=== PATIENT | female | born 1950 | race Caucasian/White ===

== ENCOUNTER 2021-10-24 09:15 | Outpatient (CLI) | payer MEDICARE ==
[2021-10-24 09:22] LABS: BASOPHILS % (AUTO) 0.7 %; EOSINOPHILS # (AUTO) 0.1 10^3/uL (0.0-0.7); EOSINOPHILS % (AUTO) 2.3 %; HCT - HEMATOCRIT 31.7 % (37.0-47.0); HGB - HEMOGLOBIN 10.9 g/dL (12.0-16.0); LYMPHOCYTES # (AUTO) 0.7 10^3/uL (1.5-3.5); MEAN CORPUSCULAR HEMOGLOBIN 31.9 pg (27.0-31.0); MEAN CORPUSCULAR HGB CONC 34.4 g/dL (32.0-36.0); MEAN CORPUSCULAR VOLUME 92.7 fL (81.0-99.0); MEAN PLATELET VOLUME 10.8 fL (7.9-10.8); MONOCYTES # (AUTO) 0.4 10^3/uL (0.0-1.0); MONOCYTES % (AUTO) 12.2 %; NEUTROPHILS # (AUTO) 1.9 10^3/uL (1.5-6.6); NEUTROPHILS % (AUTO) 60.8 %; PLT - PLATELET COUNT 151 10^3/uL (130-450); RED BLOOD COUNT 3.42 10^6/uL (4.20-5.40); RED CELL DISTRIBUTION WIDTH 11.6 % (12.0-15.0)
[2021-10-24 09:36] LABS: ALBUMIN 3.3 g/dL (3.2-5.5); ALBUMIN/GLOBULIN RATIO 1.1 (1.0-2.2); BILIRUBIN,TOTAL 0.8 mg/dL (0.2-1.0); CALCIUM 9.6 mg/dL (8.5-10.3); CREATININE 0.4 mg/dL (0.4-1.0); POTASSIUM 3.6 mmol/L (3.5-5.0); TOTAL PROTEIN 6.2 g/dL (6.7-8.2)
== END 2021-10-24 09:16 | disposition home or self-care (01) ==
LOC: LAB.R 09:15
PROVIDERS: ATTEND Internal Medicine
DX: C20 Malignant neoplasm of rectum (principal); R63.0 Anorexia; R40.0 Somnolence; R63.4 Abnormal weight loss; R53.83 Other fatigue; Z79.899 Other long term (current) drug therapy; R25.1 Tremor, unspecified
CPT/HCPCS: 80053; 84443; 85025

== ENCOUNTER 2022-01-15 11:26 | Emergency (ER) | payer MEDICARE ==
[2022-01-15] MEDS ORDERED: ONDANSETRON ODT 4 MG TABLET TL STA (11:48)
[2022-01-15 12:06] LABS: BASOPHILS % (AUTO) 0.4 %; EOSINOPHILS % (AUTO) 0.4 %; HGB - HEMOGLOBIN 9.4 g/dL (12.0-16.0); LYMPHOCYTES # (AUTO) 0.5 10^3/uL (1.5-3.5); LYMPHOCYTES % (AUTO) 11.4 %; MEAN CORPUSCULAR HEMOGLOBIN 28.3 pg (27.0-31.0); MEAN CORPUSCULAR HGB CONC 31.3 g/dL (32.0-36.0); MEAN CORPUSCULAR VOLUME 90.4 fL (81.0-99.0); MONOCYTES # (AUTO) 0.5 10^3/uL (0.0-1.0); MONOCYTES % (AUTO) 10.3 %; NEUTROPHILS # (AUTO) 3.7 10^3/uL (1.5-6.6); NEUTROPHILS % (AUTO) 77.3 %; PLT - PLATELET COUNT 144 10^3/uL (130-450); RED BLOOD COUNT 3.32 10^6/uL (4.20-5.40); RED CELL DISTRIBUTION WIDTH 14.5 % (12.0-15.0); WHITE BLOOD COUNT 4.8 x10^3/uL (4.8-10.8)
[2022-01-15 12:18] LABS: ALBUMIN 3.4 g/dL (3.2-5.5); ALBUMIN/GLOBULIN RATIO 1.1 (1.0-2.2); BILIRUBIN,TOTAL 2.5 mg/dL (0.2-1.0); CALCIUM 10.1 mg/dL (8.5-10.3); CREATININE 0.6 mg/dL (0.4-1.0); POTASSIUM 3.8 mmol/L (3.5-5.0); TOTAL PROTEIN 6.4 g/dL (6.7-8.2)
[2022-01-15 12:27] LABS: GLUCOSE, URINE (UA) NEGATIVE (NEGATIVE); KETONES,URINE (UA) 15 mg/dL (NEGATIVE); LEUKOCYTE ESTERASE, URINE NEGATIVE (NEGATIVE); NITRITE,URINE NEGATIVE (NEGATIVE); OCCULT BLOOD,URINE NEGATIVE (NEGATIVE); PH,URINE 5.5 PH (5.0-7.5); PROTEIN,URINE NEGATIVE (NEGATIVE); UROBILINOGEN,URINE 0.2 (NORMAL) E.U./dL (NORMAL)
[2022-01-15 12:33] LABS: BILIRUBIN,URINE NEGATIVE (NEGATIVE); CLARITY,URINE CLEAR (CLEAR); ICTOTEST,URINE NEGATIVE
[2022-01-15] MEDS ORDERED: SODIUM CHLORIDE 0.9% 1,000 ML IV STA (15:38)
[2022-01-15] MEDS ORDERED: ONDANSETRON 4 MG/2 ML VIAL IVP STA (15:38)
--- NOTE | 2022-01-15 15:41 | ED Physician Documentation ---
History of Present Illness - Stated complaint Stated Complaint: VOMITTING - Chief complaint Chief Complaint: Abd Pain - Additonal information Additional information: 71-year-old female presents emergency department for evaluation of 6 days nausea vomiting and diarrhea. She has a history of rectal Carcinoma and does have a diverting colostomy on the left side. She states that typically she has formed stools but over the last week she is having a lot of yellow and green diarrhea through the ostomy. She is also reporting excessive nausea and some vomiting. No focal abdominal pain. No fevers. No dysuria. She has not received any a ntibiotics recently. She was followed by Dr. Hollis with our hematology oncology MAC service. Recent CT scan of the abdomen in late October did not show any recurrence or distant metastasis however there was some unusual findings on the liver segment of the CT scan. Her CEA had remained negative and the plan was to follow-up with repeat CT imaging in 3 months. Review of Systems Constitutional: denies: Fever, Chills Cardiac: reports: Reviewed and negative Respiratory: reports: Reviewed and negative GI: reports: Nausea, Vomiting, Diarrhea. denies: Abdominal Pain, Hematemesis, Bloody / black stool : reports: Reviewed and negative Skin: reports: Reviewed and negative Musculoskeletal: reports: Reviewed and negative PD PAST MEDICAL HISTORY - Past Medical History Neuro: Peripheral neuropathy Endocrine/Autoimmune: None GI: None, Other - Past Surgical History General: Bowel surgery, Colonoscopy, EGD - Present Medications Home Medications: Ambulatory Orders Medication Instructions Recorded Confirmed ALPRAZolam [Alprazolam] 1 - 2 tab PO ONCE PRN 06/07/21 11/30/21 Gabapentin [Neurontin] 100 mg PO BID 06/07/21 11/30/21 Lisinopril [Zestril] 10 mg PO DAILY 06/07/21 11/30/21 Aspirin [[place] Aspirin] 81 mg PO DAILY 09/13/21 11/30/21 Calcium Carbonate 650 mg PO DAILY 09/13/21 11/30/21 Propranolol [Inderal] 10 mg PO BID 12/10/21 12/10/21 Prochlorperazine [Compazine] 5 mg PO Q6H PRN #10 tablet 01/15/22 - Allergies Allergies/Adverse Reactions: Allergies Allergy/AdvReac Type Severity Reaction Status Date / Time Penicillins Allergy Unknown Verified 06/07/21 11:16 codeine AdvReac Unknown Verified 06/07/21 11:16 - Social History Smoking Status: Former smoker PD ED PE NORMAL - General General: Alert and oriented X 3, No acute distress, Well developed/nourished - HEENT HEENT: Atraumatic, Moist mucous membranes - Neck Neck: Supple, no meningeal sign, No adenopathy - Cardiac Cardiac: RRR, No murmur - Respiratory Respiratory: No respiratory distress, Clear bilaterally - Abdomen Abdomen: Normal bowel sounds, Soft, Non tender, Other (Left-sided colostomy draining yellow-green watery stools. 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 Eye Opening: Spontaneous Motor: Obeys Commands Verbal: Oriented GCS Score: 15 Results - Vitals Vitals: Vital Signs - 24 hr 01/15/22 01/15/22 01/15/22 11:46 16:01 16:49 Temperature 37.0 C Heart Rate 68 68 68 Respiratory 19 19 22 Rate Blood Pressure 132/60 H 119/53 L 117/52 L O2 Saturation 99 99 100 01/15/22 01/15/22 18:00 19:27 Temperature Heart Rate 82 75 Respiratory 22 18 Rate Blood Pressure 136/81 H 129/54 L O2 Saturation 99 100 Oxygen O2 Source Room air - Labs Labs: Laboratory Tests 01/15/22 01/15/22 01/15/22 11:59 11:59 12:15 WBC 4.8 RBC 3.32 L Hgb 9.4 L Hct 30.0 L MCV 90.4 MCH 28.3 MCHC 31.3 L RDW 14.5 Plt Count 144 MPV 11.0 H Neut # (Auto) 3.7 Lymph # (Auto) 0.5 L [place] # (Auto) 0.5 Eos # (Auto) 0.0 Baso # (Auto) 0.0 Absolute Nucleated RBC 0.00 Nucleated RBC % 0.0 Sodium 137 Potassium 3.8 Chloride 101 Carbon Dioxide 25 Anion Gap 11.0 BUN 26 H Creatinine 0.6 Estimated GFR (MDRD) 99 Glucose 105 H Calcium 10.1 Total Bilirubin 2.5 H AST 37 ALT 33 Alkaline Phosphatase 89 Total Protein 6.4 L Albumin 3.4 Globulin 3.0 Albumin/Globulin Ratio 1.1 Lipase 30 Urine Color DARK YELLOW Urine Clarity CLEAR Urine pH 5.5 Ur Specific Wise >=1.030 H Urine Protein NEGATIVE Urine Glucose (UA) NEGATIVE Urine Ketones 15 H Urine Occult Blood NEGATIVE Urine Nitrite NEGATIVE Urine Bilirubin NEGATIVE Urine Urobilinogen 0.2 (NORMAL) Ur Leukocyte Esterase NEGATIVE Ur Microscopic Review NOT INDICATED Urine Culture Comments NOT INDICATED Stl C. diff Tox B Gene 01/15/22 12:15 WBC RBC Hgb Hct MCV MCH MCHC RDW Plt Count MPV Neut # (Auto) Lymph # (Auto) [place] # (Auto) Eos # (Auto) Baso # (Auto) Absolute Nucleated RBC Nucleated RBC % Sodium Potassium Chloride Carbon Dioxide Anion Gap BUN Creatinine Estimated GFR (MDRD) Glucose Calcium Total Bilirubin AST ALT Alkaline Phosphatase Total Protein Albumin Globulin Albumin/Globulin Ratio Lipase Urine Color Urine Clarity Urine pH Ur Specific Wise Urine Protein Urine Glucose (UA) Urine Ketones Urine Occult Blood Urine Nitrite Urine Bilirubin Urine Urobilinogen Ur Leukocyte Esterase Ur Microscopic Review Urine Culture Comments Stl C. diff Tox B Gene NEGATIVE - Rads (name of study) CT abd Radiology: Final report received (Small to moderate volume of low-density fluid in the pelvis which is new. No pneumoperitoneum. Heterogeneous hypodensity of the liver. This could be seen in the setting of hepatic steatosis. Left lower quadrant colostomy. No bowel obstruction. Trace right pleural effusion) abd US Radiology: Final report received (Liver with coarsened heterogeneous appearance. Nonspecific but could be seen in steatosis cirrhosis or hepatitis. Gallbladder wall is minimally thickened. Nonspecific and low suspicion for acute cholecystitis. No gallstones. No biliary ductal dilation.) PD MEDICAL DECISION MAKING - ED course Complexity details: reviewed results, re-evaluated patient, d/w patient ED course: 71-year-old female presents to the emergency department for evaluation of 5 to 6 days nausea, vomiting and diarrhea. She does have a history of rectal carcinoma and has a left-sided colostomy. Typically she reports a colostomy put out formed stools but over the last few days its been watery. She is also had some diarrhea. She has been followed by the hematology oncology clinic. Patient has no fevers. No focal abdominal pain or tenderness. She presents very well-appearing with normal vitals, no tachycardia hypotension or hypoxia. Her initial labs showed no worrisome leukocytosis. She has a mild anemia. Her electrolytes were all essentially nonconcerning with the exception of an isolated finding of a bilirubin of 2.5. There were no other LFT abnormalities. In review of the chart it does appear that they have been suspicious of about a possible lesion within the liver. I elected to perform a CT of the abdomen and pelvis. There was nothing to suggest biliary obstruction or acute cholecystitis. We also elected to perform a limited abdominal ultrasound that showed a contracted gallbladder with mild gallbladder wall thickening but no stones and very low suspicion for acute cholecystitis. On exam her abdominal tenderness is minimal and certainly nonperitoneal and nonfocal to the right upper quadrant. Here in the emergency department she was given a liter of fluid as well as Zofran followed by Compazine. With this medication she felt the nausea was improved and she was able to tolerate sips of clear liquids. A stool study and C. difficile PCR are pending but at this time there does not appear to be any acute surgical crisis and patient and her daughter would both like to be discharged home. A prescription for Compazine will be sent to the pharmacy as this was the most effective medication in managing her nausea. She is encouraged close follow-up with her primary care provider as well as her oncologist. Emergent return precautions otherwise discussed Departure - Departure Disposition: 01 Home, Self Care Clinical Impression: Nausea vomiting and diarrhea, Total bilirubin, elevated Condition: Stable Record reviewed to determine appropriate education?: Yes Prescriptions: Prochlorperazine [Compazine] 5 mg PO Q6H PRN #10 tablet PRN Reason: Nausea / Vomiting Comments: April you are seen today in the emergency department because for the last several days or week you have been having some vomiting and diarrhea. Here in the emergency department your CBC and electrolytes were all essentially normal with the exception of a mildly elevated bilirubin at 2.5. The cause of this is not clear. We did do a CT of your abdomen that does not suggest any obstruction within the gallbladder or liver. We also completed an ultrasound to look at the gallbladder and liver and do not show any thing to suggest gallbladder disease or obstruction. Here in the emergency department we did give you some IV fluids followed by Zofran and then Compazine. With this medication your nausea is much better and you are now tolerating sips of clear liquids. The cause of your vomiting and diarrhea is not clear though I do not think it is related to the elevated bilirubin level. I would like you to follow this up with your primary care providers over the next 1 to 2 weeks to have your labs rechecked. In the short-term I sent a prescription for some Compazine to the pharmacy. I would like you to Have sips of clear liquids over the next 24 to 36 hours. If your nausea is improved and you are keeping liquids down then you can advance your diet slowly with bananas, rice, applesauce and then toast. If you cannot tolerate them lactobacillus or plain yogurt can help recolonize your intestines with healthy bacteria and help reduce your diarrhea. If despite the Compazine at home you find that you are not keeping liquids down, you develop fevers, have uncontrolled abdominal pain or worsening diarrhea then please return immediately to the ER. We will follow-up with you the results of the stool cultures only if there are positive results.
[2022-01-15] MEDS ORDERED: iohexoL-300 100 ML VIAL ONE (16:09)
--- NOTE | 2022-01-15 17:52 | CT Report ---
PROCEDURE: ABDOMEN/PELVIS W INDICATIONS: n/v/d; Elevated bili CONTRAST: 100ml Omnipaque 300 TECHNIQUE: After the administration of intravenous contrast, 5 mm thick sections acquired from the diaphragms to the symphysis. 5 mm thick coronal and sagittal reformats were acquired. For radiation dose reducti on, the following was used: automated exposure control, adjustment of mA and/or kV according to santosh ent size. COMPARISON: CT abdomen pelvis 11/26/2021. FINDINGS: Image quality: Excellent. ABDOMEN: Lung bases: Trace right pleural effusion. Heart size is normal. Solid organs: Heterogeneous hypodense appearance of the liver. No discrete lesion is identified. Gal lbladder is decompressed Biliary system is non dilated. Pancreas enhances normally. No splenomegal y. No adrenal nodules. Kidneys demonstrate normal size and enhancement, without hydronephrosis. Peritoneum and bowel: Left lower quadrant colostomy. No small bowel obstruction. Low-density small-to -moderate volume of ascites in the pelvis. No pneumoperitoneum. Nodes and vessels: No retroperitoneal or mesenteric adenopathy by size criteria. Shotty appearing r etroperitoneal lymph nodes are similar. Aortic ectasia. Extensive calcified atherosclerotic plaque. Miscellaneous: Small fat-containing parastomal hernia. PELVIS: Genitourinary: Bladder is partially distended. Anteverted uterus. Miscellaneous: No inguinal hernias or adenopathy. Bones: Sclerosis at the SI joints appears similar. Bones appear osteopenic. No vertebral body jaqui harriet fractures. IMPRESSION: 1. Small to moderate volume of low-density fluid in the pelvis which is new. No pneumoperitoneum. 2. Heterogeneous hypodensity of the liver. This could be seen in the setting of hepatic steatosis. H owever, other forms of hepatocellular disease could have a similar appearance such as hepatitis. 3. Left lower quadrant colostomy. Similar small fat-containing parastomal hernia. No small bowel obst ruction. 4. Trace right pleural effusion. Reviewed by: Mauro Hardin MD on 01/15/2022 5:51 PM PDT Approved by: Mauro Hardin MD on 01/15/2022 5:51 PM PDT Station ID: [id number]
--- NOTE | 2022-01-15 18:51 | Ultrasound Report ---
PROCEDURE: Abdomen Limited INDICATIONS: elevate bilirubin TECHNIQUE: Real-time scanning was performed of the abdominal and retroperitoneal organs, with image documentatio n. COMPARISON: CT abdomen pelvis earlier today. FINDINGS: Liver: Measures 15.5 cm in length. Coarsened and heterogeneous echotexture. Portal vein demonstrates hepatopedal flow. Gallbladder: Gallbladder is nondistended. No stones or sludge. Bladder wall measures 3.7 mm. No peric holecystic fluid. Negative sonographic Schmid sign. Biliary ducts: Extrahepatic bile duct caliber measures 3 mm. Normal is 6-7 mm or less in diameter, or 10 mm or less post-cholecystectomy. Pancreas: Visualized portions of the pancreas are sonographically normal. Tail was not well seen. Right kidney: Right kidney measures 10.8 cm. Cortex 1.5 cm. No hydronephrosis. IMPRESSION: 1. Liver has a coarsened and heterogeneous appearance. This is nonspecific but could be seen in hepat ic steatosis, cirrhosis, or hepatitis. 2. Gallbladder wall is minimally thickened. This is nonspecific and suspicion for acute cholecystitis is low. This could be reactive due to inflammatory process in the liver. 3. No gallstones. 4. No biliary ductal dilatation is seen. Reviewed by: Mauro Hardin MD on 01/15/2022 6:50 PM PDT Approved by: Mauro Hardin MD on 01/15/2022 6:50 PM PDT Station ID: [id number]
[2022-01-15] MEDS ORDERED: PROCHLORPERAZINE 10 MG/2 ML VIAL IVP STA (18:57)
[2022-01-15 20:18] VITALS: BP 116/67
[2022-01-16] MEDS ORDERED: iohexoL-300 100 ML VIAL IVP ONE (00:11)
== END 2022-01-15 20:19 | disposition home or self-care (01) ==
LOC: ED 11:26
DX: R11.2 Nausea with vomiting, unspecified (principal); R19.7 Diarrhea, unspecified; E80.7 Disorder of bilirubin metabolism, unspecified; Z93.3 Colostomy status; Z87.891 Personal history of nicotine dependence; Z85.048 Personal history of other malignant neoplasm of rectum, rectosigmoid junction, and anus
CPT/HCPCS: 36415; 74177; 76705; 80053; 81003; 83690; 85025; 87493; 96361; 96374; 96375; 99283; 99284; Q0162; Q9967; 81001; 87086

== ENCOUNTER 2022-01-22 13:39 | Outpatient (CLI) | payer MEDICARE ==
--- NOTE | 2022-01-23 09:31 | Mammography Report ---
BILATERAL DIGITAL SCREENING MAMMOGRAM 3D/2D: 01/22/2022 CLINICAL: Routine screening. New baseline. No prior exams were available for comparison. Both breasts are heterogeneously dense, which may obscure small masses (category c / 51-75% glandular tissue). No significant masses, calcifications, or other findings are seen in either breast. IMPRESSION: NEGATIVE There is no mammographic evidence of malignancy. A 1 year screening mammogram is recommended. Based on the Tyrer Cuzick model (a risk assessment model) the patients lifetime risk is 5.1% and her 10 year risk is 3.6%. According to the ACR, ACS, and NCCN guidelines, an annual breast MRI exam veena g with mammogram is recommended if the patients lifetime risk is 20% or greater. This exam was interpreted at Station ID: [id number]. NOTE: For mammograms, a report in lay terms will be sent to the patient. Approximately 15% of breast malignancies will not be visualized mammographically. In the management of a palpable breast mass, a negative mammogram must not discourage biopsy of a clinically suspicious lesion. Electronically Signed By: Mauro Hardin M.D. [facility] [place]01/22/2022 17:55:44 ACR BI-RADS Category 1: Negative 3341F PARENCHYMAL PATTERN: (D) - The breast(s) demonstrate(s) heterogeneously dense fibroglandular surendra valdez. BI-RADS CATEGORY: (1) - 1 RECOMMENDATION: (ANNUAL) - Recommend routine annual screening mammography. 20230123 1 year screening LATERALITY: (B)
== END 2022-01-22 13:40 | disposition home or self-care (01) ==
LOC: DI 13:39
PROVIDERS: ATTEND Internal Medicine
DX: Z12.31 Encounter for screening mammogram for malignant neoplasm of breast (principal)

== ENCOUNTER 2022-04-03 17:48 | Emergency (ER) | payer MEDICARE ==
[2022-04-03] MEDS ORDERED: IPRATROPIUM/ALBUTEROL 3 ML NEB INH STA (18:16)
--- NOTE | 2022-04-03 18:19 | ED Physician Documentation ---
History of Present Illness - Stated complaint Stated Complaint: CHEST PX/DIARREAH/COUGH - Chief complaint Chief Complaint: General - History obtained from History obtained from: Patient - Additonal information Additional information: 71-year-old woman presents with her daughter for evaluation of shortness of breath and cough. She has had minimally productive cough for the last 2 weeks associated with shortness of breath especially on exertion. There is no associated chest pain. She has chronic pedal edema. Comorbidities include COPD, CHF, rectal cancer in remission. Reviewed old records, had echocardiogram March 14 of last month showing normal LVEF with severe diastolic dysfunction, severe left atrial enlargement, severe right ventricular enlargement with severe pulmonary hypertension, moderate to severe tricuspid regurgitation. She does have a cardiology appointment April 09 to follow-up on this. Review of Systems Constitutional: denies: Fever, Chills Ears: denies: Loss of hearing, Ear pain Cardiac: denies: Chest pain / pressure, Palpitations Respiratory: reports: Dyspnea, Cough PD PAST MEDICAL HISTORY - Past Medical History Neuro: Peripheral neuropathy Endocrine/Autoimmune: None GI: None, Other - Past Surgical History General: Bowel surgery, Colonoscopy, EGD - Present Medications Home Medications: Ambulatory Orders Medication Instructions Recorded Confirmed ALPRAZolam [Alprazolam] 1 - 2 tab PO ONCE PRN 06/07/21 03/22/22 Gabapentin [Neurontin] 100 mg PO BID 06/07/21 03/22/22 Lisinopril [Zestril] 10 mg PO DAILY 06/07/21 03/22/22 Aspirin [[place] Aspirin] 81 mg PO DAILY 09/13/21 03/22/22 Calcium Carbonate 650 mg PO DAILY 09/13/21 03/22/22 Propranolol [Inderal] 10 mg PO BID 12/10/21 03/22/22 Prochlorperazine [Compazine] 5 mg PO Q6H PRN #10 tablet 01/15/22 03/22/22 Diphenoxylate/Atropine [Lomotil] 1 each PO QID #20 tablet 04/03/22 Doxycycline [Vibramycin] 100 mg PO BID #14 tablet 04/03/22 Furosemide [Lasix] 2 tab PO DAILY #20 tablet 04/03/22 Potassium Chloride 10 meq PO DAILY #10 cap 04/03/22 predniSONE [Deltasone] 20 mg PO [id number] #21 tab 04/03/22 - Allergies Allergies/Adverse Reactions: Allergies Allergy/AdvReac Type Severity Reaction Status Date / Time Penicillins Allergy Unknown Verified 04/03/22 18:04 codeine AdvReac Unknown Verified 04/03/22 18:04 - Social History Smoking Status: Former smoker PD ED PE NORMAL - Vitals Vital signs reviewed: Yes - General General: Alert and oriented X 3, Other (Appears pale and chronically ill) - HEENT HEENT: PERRL, EOMI - Neck Neck: Supple, no meningeal sign, No bony TTP - Cardiac Cardiac: RRR, No murmur - Respiratory Respiratory: Other (Rhonchi both bases, nonlabored, speaking in full sentences.) - Abdomen Abdomen: Non tender, Other (Ostomy in place) - Back Back: No CVA TTP, No spinal TTP - Derm Derm: Normal color, Warm and dry - Extremities Extremities: Other (1-2+ pitting pedal edema with chronic venous stasis changes, looks chronic.) - Neuro Neuro: Alert and oriented X 3, Normal speech Results - Vitals Vitals: Vital Signs - 24 hr 04/03/22 04/03/22 04/03/22 17:54 18:27 18:50 Temperature 36.8 C Heart Rate 82 79 78 Respiratory 28 H 23 20 Rate Blood Pressure 135/69 H 129/77 O2 Saturation 98 99 04/03/22 04/03/22 19:32 19:56 Temperature Heart Rate 78 80 Respiratory 28 H 25 H Rate Blood Pressure 131/57 H 127/62 O2 Saturation 98 99 Oxygen O2 Source Room air - EKG (time done) 1830 Rate: Rate (enter#) (79) Rhythm: NSR [place]: Normal Intervals: RBBB (incomplete) QRS: Low voltage Ischemia: No: ST elevation c/w ischemia, ST depression Computer interpretation: Disagree with computer (Computer reads this as atrial flutter but in several leads there are clear normal P waves without flutter. There is some artifact.) - Labs Labs: Laboratory Tests 04/03/22 04/03/22 04/03/22 18:45 18:45 18:45 WBC 7.8 RBC 3.16 L Hgb 8.6 L Hct 27.2 L MCV 86.1 MCH 27.2 MCHC 31.6 L RDW 14.8 Plt Count 198 MPV 9.7 Neut # (Auto) 6.2 Lymph # (Auto) 0.6 L [place] # (Auto) 0.9 Eos # (Auto) 0.0 Baso # (Auto) 0.0 Absolute Nucleated RBC 0.00 Nucleated RBC % 0.0 Sodium 133 L Potassium 3.6 Chloride 94 L Carbon Dioxide 29 Anion Gap 10.0 BUN 15 Creatinine 0.4 Estimated GFR (MDRD) 157 Glucose 97 Calcium 8.7 Total Bilirubin 7.1 H AST 20 ALT 13 Alkaline Phosphatase 84 B-Natriuretic Peptide 1941 H Total Protein 6.1 L Albumin 2.6 L Globulin 3.5 Albumin/Globulin Ratio 0.7 L Nasal Adenovirus (PCR) Nasal B. parapertussis DNA (PCR) Nasal Coronavir 229E PCR Nasal Coronavir HKU1 PCR Nasal Coronavir NL63 PCR Nasal Coronavir OC43 PCR Nasal Enterovir/Rhinovir PCR Nasal Influenza B PCR Nasal Influenza A PCR Nasal Parainfluen 1 PCR Nasal Parainfluen 2 PCR Nasal Parainfluen 3 PCR Nasal Parainfluen 4 PCR Nasal RSV (PCR) Nasal B.pertussis DNA PCR Nasal C.pneumoniae (PCR) Barrett Human Metapneumo PCR Nasal M.pneumoniae (PCR) Nasal SARS-CoV-2 (PCR) 04/03/22 18:53 WBC RBC Hgb Hct MCV MCH MCHC RDW Plt Count MPV Neut # (Auto) Lymph # (Auto) [place] # (Auto) Eos # (Auto) Baso # (Auto) Absolute Nucleated RBC Nucleated RBC % Sodium Potassium Chloride Carbon Dioxide Anion Gap BUN Creatinine Estimated GFR (MDRD) Glucose Calcium Total Bilirubin AST ALT Alkaline Phosphatase B-Natriuretic Peptide Total Protein Albumin Globulin Albumin/Globulin Ratio Nasal Adenovirus (PCR) NOT DETECTED Nasal B. parapertussis DNA (PCR) NOT DETECTED Nasal Coronavir 229E PCR NOT DETECTED Nasal Coronavir HKU1 PCR NOT DETECTED Nasal Coronavir NL63 PCR NOT DETECTED Nasal Coronavir OC43 PCR NOT DETECTED Nasal Enterovir/Rhinovir PCR NOT DETECTED Nasal Influenza B PCR NOT DETECTED Nasal Influenza A PCR NOT DETECTED Nasal Parainfluen 1 PCR NOT DETECTED Nasal Parainfluen 2 PCR NOT DETECTED Nasal Parainfluen 3 PCR NOT DETECTED Nasal Parainfluen 4 PCR NOT DETECTED Nasal RSV (PCR) NOT DETECTED Nasal B.pertussis DNA PCR NOT DETECTED Nasal C.pneumoniae (PCR) NOT DETECTED Barrett Human Metapneumo PCR NOT DETECTED Nasal M.pneumoniae (PCR) NOT DETECTED Nasal SARS-CoV-2 (PCR) NOT DETECTED - Rads (name of study) Single view chest x-ray demonstrates cardiomegaly and pulmonary vascular congestion Radiology: Final report received, EMP read indepedently PD Medical Decision Making - ED course Complexity details: reviewed results (CBC reviewed showing slow worsening of chronic anemia, not a huge drop from a few months ago. CMP reviewed and notable for elevated bilirubin at 7.1. That has been going up and may be due to CHF. BNP elevated more so than prior visit. ) ED course: 71-year-old female presents with shortness of breath. I think it is a combination of COPD and CHF. No chest pain or ischemic findings on EKG. She does have rising bilirubin and evidence of CHF on chest x-ray. I believe the rising bilirubin is related to hepatic congestion from her CHF. This is corroborated by review of CT scans done in January showing likely cardiogenic cause of anasarca and hepatic congestion. She did feel somewhat better after a DuoNeb here. We will treat for combination of COPD and CHF by adding steroids and antibiotics, doubling her Lasix as she is currently on 20 mg a day, she needed something for diarrhea and was prescribed Lomotil. She is not on potassium supplementation which we will start. Given her serious valvular disease it is reassuring that she is seeing a fire battalion chief next week. Departure - Departure Disposition: 01 Home, Self Care Clinical Impression: Total bilirubin, elevated, CHF (congestive heart failure), COPD exacerbation Condition: Good Record reviewed to determine appropriate education?: Yes Instructions: COPD Dc, ED CHF General Prescriptions: predniSONE [Deltasone] 20 mg PO [id number] #21 tab Furosemide [Lasix] 2 tab PO DAILY #20 tablet Diphenoxylate/Atropine [Lomotil] 1 each PO QID #20 tablet Potassium Chloride 10 meq PO DAILY #10 cap Doxycycline [Vibramycin] 100 mg PO BID #14 tablet Comments: You were seen tonight for what I think is probably a combination of COPD exacerbation and congestive heart failure. I would like you to double your Lasix to 40 mg a day. To that I am adding steroids, antibiotics, and a potassium supplement to be taken while you are on the water pill. It is good that you are following up with a fire battalion chief next week as certainly some of the problem I think is related to your leaky tricuspid valve. Return for new or worsening symptoms. We also note that you are anemic, and your bilirubin is going up. These findings may be related to your CHF but also deserve rapid follow-up with your primary care physician for further work-up. I sent your prescriptions electronically to the [facility] pharmacy here in [place].
[2022-04-03 18:54] LABS: BASOPHILS % (AUTO) 0.5 %; EOSINOPHILS % (AUTO) 0.1 %; HCT - HEMATOCRIT 27.2 % (37.0-47.0); HGB - HEMOGLOBIN 8.6 g/dL (12.0-16.0); LYMPHOCYTES # (AUTO) 0.6 10^3/uL (1.5-3.5); LYMPHOCYTES % (AUTO) 7.3 %; MEAN CORPUSCULAR HEMOGLOBIN 27.2 pg (27.0-31.0); MEAN CORPUSCULAR HGB CONC 31.6 g/dL (32.0-36.0); MEAN CORPUSCULAR VOLUME 86.1 fL (81.0-99.0); MEAN PLATELET VOLUME 9.7 fL (7.9-10.8); MONOCYTES # (AUTO) 0.9 10^3/uL (0.0-1.0); MONOCYTES % (AUTO) 11.3 %; NEUTROPHILS # (AUTO) 6.2 10^3/uL (1.5-6.6); NEUTROPHILS % (AUTO) 80.3 %; PLT - PLATELET COUNT 198 10^3/uL (130-450); RED BLOOD COUNT 3.16 10^6/uL (4.20-5.40); RED CELL DISTRIBUTION WIDTH 14.8 % (12.0-15.0); WHITE BLOOD COUNT 7.8 x10^3/uL (4.8-10.8)
[2022-04-03 19:05] LABS: ALBUMIN 2.6 g/dL (3.2-5.5); ALBUMIN/GLOBULIN RATIO 0.7 (1.0-2.2); BILIRUBIN,TOTAL 7.1 mg/dL (0.2-1.0); CALCIUM 8.7 mg/dL (8.5-10.3); CREATININE 0.4 mg/dL (0.4-1.0); POTASSIUM 3.6 mmol/L (3.5-5.0); TOTAL PROTEIN 6.1 g/dL (6.7-8.2)
--- NOTE | 2022-04-03 19:08 | XRAY Report ---
PROCEDURE: Chest 1 View X-Ray INDICATIONS: cough TECHNIQUE: One view of the chest was acquired. COMPARISON: None. FINDINGS: Surgical changes and devices: None. Lungs and pleura: Diffuse bilateral airspace opacities. There is a right chest wall port. Mediastinum: Mediastinal contours appear normal. Heart size is normal. Bones and chest wall: No suspicious bony lesions. Overlying soft tissues appear unremarkable. IMPRESSION: 1. Cardiomegaly. 2. Pulmonary vascular congestion consistent with CHF or a diffuse infectious process. Reviewed by: Rikki Chance on 04/03/2022 7:07 PM [facility] Approved by: Rikki Chance on 04/03/2022 7:07 PM [facility] Station ID: [id number]
[2022-04-03] MEDS ORDERED: FUROSEMIDE 40 MG/4 ML VIAL IVP STA (19:39)
[2022-04-03 19:55] LABS: B. PARAPERTUSSIS- RESP PCR PAN NOT DETECTED; B. PERTUSSIS- RESP PCR PANEL NOT DETECTED; C. PNEUMONIAE- RESP PCR PANEL NOT DETECTED; CORONAVIRUS 229E-RESP PCR NOT DETECTED; CORONAVIRUS HKU1-RESP PCR NOT DETECTED; CORONAVIRUS NL63-RESP PCR NOT DETECTED; CORONAVIRUS OC43-RESP PCR NOT DETECTED; HUMAN METAPNEUMOVIRUS NOT DETECTED; INFLUENZA A- RESP PCR PANEL NOT DETECTED; INFLUENZA B - RESP PCR PANEL NOT DETECTED; M. PNEUMONIAE- RESP PCR PANEL NOT DETECTED; PARAINFLUENZA VIRUS 1 NOT DETECTED; PARAINFLUENZA VIRUS 2 NOT DETECTED; PARAINFLUENZA VIRUS 3 NOT DETECTED; PARAINFLUENZA VIRUS 4 NOT DETECTED; RHINOVIRUS/ENTEROVIRUS NOT DETECTED; RSV- RESP PCR PANEL NOT DETECTED; SARS-CoV-2 -RESP PCR PANEL NOT DETECTED
[2022-04-03] MEDS ORDERED: DOXYCYCLINE 100 MG TABLET PO STA (20:34)
[2022-04-03] MEDS ORDERED: predniSONE 20 MG TABLET PO STA (20:34)
[2022-04-03 20:48] VITALS: BP 132/71
== END 2022-04-03 21:11 | disposition home or self-care (01) ==
LOC: ED 17:48
DX: J44.1 Chronic obstructive pulmonary disease with (acute) exacerbation (principal); I50.9 Heart failure, unspecified; E80.7 Disorder of bilirubin metabolism, unspecified; Z87.891 Personal history of nicotine dependence; Z20.822 Contact with and (suspected) exposure to COVID-19
CPT/HCPCS: 36415; 71045; 80053; 83880; 85025; 87633; 93005; 94640; 96374; 99284; A9270; J7512

== ENCOUNTER 2023-01-20 10:19 | Outpatient (CLI) | payer MEDICARE, MEDICAID ==
[2023-01-20 10:28] LABS: HCT - HEMATOCRIT 34.7 % (37.0-47.0); MEAN CORPUSCULAR HEMOGLOBIN 35.6 pg (27.0-31.0); MEAN CORPUSCULAR HGB CONC 34.6 g/dL (32.0-36.0); RED BLOOD COUNT 3.37 10^6/uL (4.20-5.40); RED CELL DISTRIBUTION WIDTH 12.8 % (12.0-15.0); WHITE BLOOD COUNT 4.5 x10^3/uL (4.8-10.8)
[2023-01-20 10:43] LABS: BUN - BLOOD UREA NITROGEN 28 mg/dL (6-20); CALCIUM 10.7 mg/dL (8.5-10.3); CARBON DIOXIDE - CO2 33 mmol/L (21-32); CHLORIDE 98 mmol/L (101-111); CHOL/HDL RATIO 4.1 (<4.4); CHOLESTEROL 190 mg/dL; CREATININE 1.2 mg/dL (0.6-1.3); GFR - MDRD 44 (>89); GLUCOSE 95 mg/dL (74-104); HDL CHOLESTEROL 46 mg/dL; LDL CHOLESTEROL,CALCULATED 112 mg/dL; LDL/HDL RATIO 2.4 (<4.4); POTASSIUM 4.1 mmol/L (3.5-4.5); SODIUM 136 mmol/L (135-145); TRIGLYCERIDES 161 mg/dL (48-352); VLDL CHOLESTEROL 32 mg/dL
== END 2023-01-20 10:20 | disposition home or self-care (01) ==
LOC: LAB 10:19
PROVIDERS: ATTEND Internal Medicine Cardiovascular Disease
DX: I10 Essential (primary) hypertension (principal); E78.5 Hyperlipidemia, unspecified
CPT/HCPCS: 36415; 80048; 80061; 83721; 85027

== ENCOUNTER 2023-05-29 13:29 | Outpatient (CLI) | payer MEDICARE, MEDICAID ==
[2023-05-29 14:39] LABS: THYROID STIMULATING HORMONE 118.53 uIU/mL (0.34-5.60)
== END 2023-05-29 13:30 | disposition home or self-care (01) ==
LOC: LAB 13:29
PROVIDERS: ATTEND Internal Medicine
DX: D64.9 Anemia, unspecified (principal); D22.9 Melanocytic nevi, unspecified; E05.90 Thyrotoxicosis, unspecified without thyrotoxic crisis or storm; D75.89 Other specified diseases of blood and blood-forming organs
CPT/HCPCS: 36415; 82607; 82746; 84439; 84443; 84481

== ENCOUNTER 2023-10-03 15:20 | Outpatient (CLI) | payer MEDICARE, MEDICAID | END 2023-10-03 15:21 | disposition home or self-care (01) | LOC: LAB 15:20 | PROVIDERS: ATTEND Internal Medicine | DX: M25.522 Pain in left elbow (principal); E05.90 Thyrotoxicosis, unspecified without thyrotoxic crisis or storm; M77.10 Lateral epicondylitis, unspecified elbow; D53.9 Nutritional anemia, unspecified; G62.9 Polyneuropathy, unspecified | CPT/HCPCS: 36415; 84481 ==

== ENCOUNTER 2023-10-03 15:34 | Outpatient (CLI) | payer MEDICARE, MEDICAID ==
--- NOTE | 2023-10-03 16:49 | XRAY Report ---
PROCEDURE: Elbow 3+V LT INDICATIONS: ELBOW PAIN TECHNIQUE: 3 views of the elbow were acquired. COMPARISON: None FINDINGS: Bones: No fractures or dislocations. No suspicious bony lesions. Soft tissues: No elbow joint effusion. No suspicious soft tissue calcifications. IMPRESSION: Unremarkable elbow radiographs Reviewed by: Maxi Tian MD on 10/03/2023 3:48 PM [facility] Approved by: Maxi Tian MD on 10/03/2023 3:48 PM [facility] Station ID: [id number]
== END 2023-10-03 15:35 | disposition home or self-care (01) ==
LOC: DI 15:34
PROVIDERS: ATTEND Internal Medicine
DX: M25.522 Pain in left elbow (principal)

== ENCOUNTER 2023-12-04 11:59 | Outpatient (CLI) | payer MEDICARE, MEDICAID ==
[2023-12-04 13:07] LABS: THYROID STIMULATING HORMONE 116.62 uIU/mL (0.34-5.60)
== END 2023-12-04 12:00 | disposition home or self-care (01) ==
LOC: LAB 11:59
PROVIDERS: ATTEND Internal Medicine
DX: E05.90 Thyrotoxicosis, unspecified without thyrotoxic crisis or storm (principal)
CPT/HCPCS: 36415; 84439; 84443